=== PATIENT | female | born 1930 | race Caucasian/White ===

== ENCOUNTER 2016-06-25 14:17 | Outpatient (CLI) | payer MEDICARE ==
[2016-06-25 15:21] LABS: Hemoglobin A1c 5.5 % (4.0-6.0)
[2016-06-25 15:28] LABS: ALT (SGPT) 10 U/L (0-55); AST (SGOT) 18 U/L (5-34); Albumin 3.9 g/dL (3.4-4.8); Alkaline Phosphatase 63 U/L (40-150); Anion Gap 15 mmol/L (10-20); BUN (Urea Nitrogen) 18 mg/dL (9.8-20.1); Bilirubin, Direct 0.2 mg/dL (0.1-0.3); Bilirubin, Total 0.5 mg/dL (0.2-1.2); Calc. Creatinine Clearance 0 mL/min (70-130); Calcium 8.9 mg/dL (7.8-10.44); Carbon Dioxide 21 mmol/L (23-31); Cardiac Risk 4.8 (Less than 4.5); Chloride 109 mmol/L (98-107); Cholesterol 285 mg/dL (< 200 Desired); Estimated GFR-MDRD 67; Glucose 83 mg/dL (83-110); HDL Cholesterol 60 mg/dL (>60 Neg Risk); LDL Cholesterol, Calculated 205 mg/dL; Potassium 4.3 mmol/L (3.5-5.1); Protein, Total 6.7 g/dL (5.8-8.1); Sodium 141 mmol/L (136-145); Triglycerides 101 mg/dL (Less than 150)
== END 2016-06-25 14:18 | disposition home or self-care (01) ==
LOC: NAVSJIPCSP 14:17
PROVIDERS: ATTEND Family Medicine
DX: E78.00 Pure hypercholesterolemia, unspecified (principal); R32 Unspecified urinary incontinence; L25.9 Unspecified contact dermatitis, unspecified cause; I10 Essential (primary) hypertension; E78.2 Mixed hyperlipidemia; E03.9 Hypothyroidism, unspecified
CPT/HCPCS: 36415; 80048; 80061; 80076; 83036; 84443

== ENCOUNTER 2016-12-13 10:56 | Outpatient (CLI) | payer MEDICARE ==
[2016-12-13 12:01] LABS: #Basophils 0.2 thou/uL (0.0-0.2); #Eosinphils 0.3 thou/uL (0.0-0.7); #Lymphocytes 1.6 thou/uL (1.20-3.40); #Monocytes 0.9 thou/uL (0.11-0.59); #Neutrophils 5.7 thou/uL (1.40-6.50); %Basophils 1.8 % (0.0-1.0); %Eosinophils 3.1 % (0.0-10.0); %Lymphocytes 18.8 % (21.0-51.0); %Monocytes 10.4 % (0.0-10.0); %Neutrophils 65.9 % (42.0-75.0); Hemoglobin 13.4 g/dL (12.0-16.0); Mean Corpuscular HGB CONC 32.1 g/dL (32.0-36.0); Mean Corpuscular Hemoglobin 29.7 pg (27.0-31.0); Mean Corpuscular Volume 92.5 fl (81.0-99.0); Mean Platelet Volume 6.8 fL (7.4-10.4); Platelet Count 259 thou/uL (130-400); RBC Distribution Width 13.7 % (11.5-14.5); Red Blood Cell (RBC) Count 4.52 mill/uL (4.20-5.40); White Blood Cell (WBC) Count 8.6 thou/uL (4.8-10.8)
[2016-12-13 12:26] LABS: ALT (SGPT) 12 U/L (8-55); AST (SGOT) 19 U/L (5-34); Albumin 4.1 g/dL (3.4-4.8); Alkaline Phosphatase 55 U/L (40-150); Anion Gap 16 mmol/L (10-20); BUN (Urea Nitrogen) 19 mg/dL (9.8-20.1); Bilirubin, Direct 0.2 mg/dL (0.1-0.3); Bilirubin, Total 0.5 mg/dL (0.2-1.2); Calc. Creatinine Clearance 0 mL/min (70-130); Calcium 9.6 mg/dL (7.8-10.44); Carbon Dioxide 23 mmol/L (23-31); Chloride 105 mmol/L (98-107); Estimated GFR-MDRD 62; Glucose 95 mg/dL (83-110); Potassium 4.6 mmol/L (3.5-5.1); Protein, Total 6.9 g/dL (6.0-8.3); Sodium 139 mmol/L (136-145)
--- NOTE | 2016-12-13 13:15 | RAD ---
PA CHEST THREE VIEWS LEFT RIBS: Date: 12-13-16 History: Left sided rib pain. Comparison: 11-25-15 FINDINGS: Cardiac silhouette and pulmonary vasculature are within normal limits. The lungs remain clear. No le ft sided rib fracture is visualized. Degenerative changes are seen in the thoracic and visualized up per lumbar spine. There is suggestion of mild height loss of the T12 vertebral body, lateral project ion was not performed for further evaluation. Lateral view of the lumbar spine may be helpful for fu rther evaluation to include the level of the T12 vertebral body. There are calcifications overlying the left upper quadrant, possibly related to calcified granulomata. IMPRESSION: 1. No evidence of a left sided rib fracture. 2. No acute cardiopulmonary process. 3. Degenerative changes in the visualized cervical, thoracic and lumbar spines. 4. Question mild height loss of the T12 vertebral body. Views of the thoracic or lumbar spine would be helpful for further evaluation. POS: [facility]
== END 2016-12-13 10:57 | disposition home or self-care (01) ==
LOC: NAV LAB 10:56
DX: R07.81 Pleurodynia (principal); Z79.899 Other long term (current) drug therapy; M47.812 Spondylosis without myelopathy or radiculopathy, cervical region; M47.814 Spondylosis without myelopathy or radiculopathy, thoracic region; M47.816 Spondylosis without myelopathy or radiculopathy, lumbar region
CPT/HCPCS: 36415; 80048; 80076; 84443; 85025